=== PATIENT | female | born 1965 | race African-American/Black ===

== ENCOUNTER 2022-05-05 15:18 | Inpatient (IN) | payer OTHER ==
[2022-05-05] MEDS ORDERED: ACETAMINOPHEN 325 MG TABLET (FP) PO ONE (16:46)
[2022-05-05] MEDS ORDERED: METHOCARBAMOL 500 MG TABLET PO ONE (16:46)
[2022-05-05] MEDS ORDERED: oxyCODONE HCL 5 MG TABLET PO ONE (16:46)
[2022-05-05] MEDS ORDERED: oxyCODONE HCL 5 MG TABLET ONE (17:19)
[2022-05-05] MEDS ORDERED: ACETAMINOPHEN 325 MG TABLET (FP) ONE (17:19)
[2022-05-05] MEDS ORDERED: METHOCARBAMOL 500 MG TABLET ONE (17:19)
[2022-05-05 17:39] LABS: BASO % 0.5 % (0-2.0); EOS % 1.9 % (0-4.5); HEMATOCRIT 38.4 % (32.4-45.2); HEMOGLOBIN 13.1 GM/dL (10.7-15.3); LYMPH % 39.8 % (8-40); MEAN CELL VOLUME 88.2 fl (80-96); MEAN PLT VOLUME 9.4 fl (7.5-11.1); MONO % 8.9 % (3.8-10.2); NEUT % 48.9 % (42.8-82.8); PLATELET COUNT 238 10^3/uL (134-434); RBC 4.36 M/mm3 (3.60-5.2); RDW 13.6 % (11.6-15.6); WHITE BLOOD COUNT 4.6 K/mm3 (4.0-10.0)
[2022-05-05] MEDS ORDERED: hydrALAZINE HCL 50 MG TABLET (FP) PO ONE (17:43)
[2022-05-05] MEDS ORDERED: LABETALOL HCL 100 MG TABLET (FP) PO ONE (17:43)
[2022-05-05 17:52] LABS: ALBUMIN 3.7 g/dl (3.4-5.0); BLOOD UREA NITROGEN 14.9 mg/dL (7-18)
[2022-05-05 17:53] LABS: INR 1.04 (0.83-1.09)
[2022-05-05 17:56] LABS: ACTIVATED PTT 31.1 SECONDS (25.2-36.5); TOT PROT 7.6 g/dl (6.4-8.2)
[2022-05-05 17:57] LABS: BILIRUBIN,TOTAL 0.4 mg/dL (0.2-1)
[2022-05-05] MEDS ORDERED: LABETALOL HCL 100 MG TABLET (FP) ONE ×2 (18:00→23:33)
[2022-05-05] MEDS ORDERED: hydrALAZINE HCL 50 MG TABLET (FP) ONE (18:00)
[2022-05-05] MEDS ORDERED: hydrALAZINE HCL 20 MG/ML VIAL ONE (22:55)
[2022-05-05] MEDS ORDERED: ACETAMINOPHEN INJECTION 100 ML IVPB ONE (22:55)
[2022-05-05] MEDS: ACETAMINOPHEN 1000 MG/100 ML BAG IVPB PRN (23:01)
[2022-05-05] MEDS ORDERED: LABETALOL HCL 200 MG TABLET (FP) PO SCH (23:15)
[2022-05-05] MEDS: hydrALAZINE HCL 20 MG/ML VIAL IVPUSH PRN (23:31)
[2022-05-06] MEDS: LABETALOL HCL 200 MG TABLET (FP) PO SCH ×3 (06:03→21:49)
[2022-05-06] MEDS: hydrALAZINE HCL 50 MG TABLET (FP) PO SCH ×3 (08:19→21:49)
[2022-05-06 09:25] LABS: BASO % 0.5 % (0-2.0); EOS % 1.5 % (0-4.5); HEMATOCRIT 42.3 % (32.4-45.2); HEMOGLOBIN 13.9 GM/dL (10.7-15.3); LYMPH % 46.6 % (8-40); MCH 29.3 pg (25.7-33.7); MCHC 32.8 g/dl (32.0-36.0); MEAN CELL VOLUME 89.4 fl (80-96); MEAN PLT VOLUME 10.2 fl (7.5-11.1); MONO % 7.6 % (3.8-10.2); NEUT % 43.8 % (42.8-82.8); PLATELET COUNT 229 10^3/uL (134-434); RBC 4.73 M/mm3 (3.60-5.2); RDW 13.9 % (11.6-15.6); WHITE BLOOD COUNT 4.1 K/mm3 (4.0-10.0)
[2022-05-06 09:54] LABS: ALBUMIN 3.5 g/dl (3.4-5.0); BLOOD UREA NITROGEN 15.1 mg/dL (7-18); MAGNESIUM 2.3 mg/dL (1.8-2.4)
[2022-05-06 09:57] LABS: CREATININE 0.8 mg/dL (0.55-1.3); PHOSPHOROUS 3.7 mg/dL (2.5-4.9)
[2022-05-06 09:59] LABS: BILIRUBIN,TOTAL 0.6 mg/dL (0.2-1); TOT PROT 7.6 g/dl (6.4-8.2)
[2022-05-06] MEDS ORDERED: HYDROCHLOROTHIAZIDE 12.5 MG CAPSULE (FP) PO SCH (10:00)
[2022-05-06] MEDS ORDERED: amLODIPine BESYLATE 5 MG TABLET (FP) PO SCH (12:15)
[2022-05-06] MEDS ORDERED: oxyCODONE HCL 5 MG TABLET PO PRN ×2 (15:48→15:52)
[2022-05-06] MEDS: GABAPENTIN 300 MG CAPSULE PO SCH ×2 (16:32→21:49)
[2022-05-06] MEDS: SPIRONOLACTONE 25 MG TABLET PO SCH (16:32)
[2022-05-06] MEDS: ACETAMINOPHEN 1000 MG/100 ML BAG IVPB PRN (16:33)
[2022-05-06] MEDS: VALSARTAN 160 MG TABLET PO SCH ×2 (16:33→21:49)
[2022-05-06] MEDS: HEPARIN NA (PORCINE) 5,000 UNITS/ML 1ML VIAL SQ SCH (21:54)
[2022-05-07] MEDS: LABETALOL HCL 200 MG TABLET (FP) PO SCH ×4 (05:16→23:12)
[2022-05-07] MEDS: GABAPENTIN 300 MG CAPSULE PO SCH ×3 (05:16→23:11)
[2022-05-07 09:57] LABS: BASO % 1.4 % (0-2.0); EOS % 2.5 % (0-4.5); HEMATOCRIT 39.9 % (32.4-45.2); LYMPH % 47.2 % (8-40); MCH 29.6 pg (25.7-33.7); MCHC 32.7 g/dl (32.0-36.0); MEAN CELL VOLUME 90.4 fl (80-96); MEAN PLT VOLUME 10.5 fl (7.5-11.1); MONO % 7.1 % (3.8-10.2); NEUT % 41.8 % (42.8-82.8); PLATELET COUNT 186 10^3/uL (134-434); RBC 4.41 M/mm3 (3.60-5.2); RDW 14.4 % (11.6-15.6); WHITE BLOOD COUNT 4.2 K/mm3 (4.0-10.0)
[2022-05-07 10:11] LABS: CALCIUM 9.3 mg/dL (8.5-10.1)
[2022-05-07 10:12] LABS: ALBUMIN 3.6 g/dl (3.4-5.0); BLOOD UREA NITROGEN 14.9 mg/dL (7-18); MAGNESIUM 2.3 mg/dL (1.8-2.4)
[2022-05-07] MEDS: hydrALAZINE HCL 50 MG TABLET (FP) PO SCH ×2 (10:13→23:12)
[2022-05-07] MEDS: SPIRONOLACTONE 25 MG TABLET PO SCH (10:13)
[2022-05-07] MEDS: HEPARIN NA (PORCINE) 5,000 UNITS/ML 1ML VIAL SQ SCH ×2 (10:13→23:08)
[2022-05-07] MEDS: VALSARTAN 160 MG TABLET PO SCH ×2 (10:13→23:12)
[2022-05-07 10:16] LABS: BILIRUBIN,TOTAL 0.4 mg/dL (0.2-1); TOT PROT 7.8 g/dl (6.4-8.2)
[2022-05-07 10:28] LABS: PLATELET ESTIMATE ADEQUATE
[2022-05-07] MEDS ORDERED: clonazePAM 0.5 MG TABLET PO PRN (10:58)
[2022-05-07] MEDS: LIDOCAINE 5% TOPICAL PATCH TP SCH (12:34)
[2022-05-07] MEDS: hydrALAZINE HCL 20 MG/ML VIAL IVPUSH PRN (20:28)
[2022-05-07] MEDS ORDERED: LIDOCAINE PATCH REMOVAL MC SCH (22:00)
[2022-05-08] MEDS: GABAPENTIN 300 MG CAPSULE PO SCH ×3 (06:10→21:35)
[2022-05-08] MEDS: LABETALOL HCL 200 MG TABLET (FP) PO SCH ×3 (06:10→21:35)
[2022-05-08] MEDS: hydrALAZINE HCL 20 MG/ML VIAL IVPUSH PRN (06:10)
[2022-05-08] MEDS ORDERED: ceFAZolin SODIUM 1 GM VIAL ONE (06:36)
[2022-05-08] MEDS ORDERED: THROMBIN (BOVINE) 5,000 UNIT VIAL TP ONE (06:37)
[2022-05-08 07:51] LABS: CALCIUM 8.8 mg/dL (8.5-10.1)
[2022-05-08 07:52] LABS: ALBUMIN 3.4 g/dl (3.4-5.0); BLOOD UREA NITROGEN 15.9 mg/dL (7-18)
[2022-05-08 07:53] LABS: BASO % 0.9 % (0-2.0); EOS % 2.5 % (0-4.5); HEMATOCRIT 39.3 % (32.4-45.2); HEMOGLOBIN 12.9 GM/dL (10.7-15.3); MCH 29.5 pg (25.7-33.7); MCHC 32.8 g/dl (32.0-36.0); MEAN CELL VOLUME 89.9 fl (80-96); MEAN PLT VOLUME 10.7 fl (7.5-11.1); MONO % 10.2 % (3.8-10.2); NEUT % 36.4 % (42.8-82.8); PLATELET COUNT 220 10^3/uL (134-434); RBC 4.37 M/mm3 (3.60-5.2); RDW 14.2 % (11.6-15.6); WHITE BLOOD COUNT 4.5 K/mm3 (4.0-10.0)
[2022-05-08 07:55] LABS: CREATININE 0.9 mg/dL (0.55-1.3)
[2022-05-08 07:57] LABS: BILIRUBIN,TOTAL 0.3 mg/dL (0.2-1); TOT PROT 7.3 g/dl (6.4-8.2)
[2022-05-08] MEDS: oxyCODONE HCL 5 MG TABLET PO PRN ×2 (08:47→17:36)
[2022-05-08] MEDS: LIDOCAINE 5% TOPICAL PATCH TP SCH (09:09)
[2022-05-08] MEDS: VALSARTAN 160 MG TABLET PO SCH ×2 (09:09→21:35)
[2022-05-08] MEDS: SPIRONOLACTONE 25 MG TABLET PO SCH (09:09)
[2022-05-08] MEDS: hydrALAZINE HCL 50 MG TABLET (FP) PO SCH ×2 (09:09→21:34)
[2022-05-08] MEDS: HEPARIN NA (PORCINE) 5,000 UNITS/ML 1ML VIAL SQ SCH ×2 (09:10→21:35)
[2022-05-08] MEDS ORDERED: ACETAMINOPHEN/CAFFEINE/BUTALBITAL 1 TAB PO PRN ×2 (09:48→18:10)
[2022-05-08] MEDS ORDERED: ACETAMINOPHEN/CAFFEINE/BUTALBITAL 1 TAB PO ONE (10:37)
[2022-05-08 11:34] LABS: EPI CELLS 33 /uL (0-25.1); HYALINE CASTS 1 /uL (0-3.1); URINE APPEARANCE CLOUDY; URINE BACTERIA >9,000 /uL (0-1359); URINE BILIRUBIN NEGATIVE (NEGATIVE); URINE COLOR YELLOW; URINE GLUCOSE (UA) NEGATIVE (NEGATIVE); URINE KETONE NEGATIVE (NEGATIVE); URINE LEUK ESTERASE TRACE (NEGATIVE); URINE NITRITE POSITIVE (NEGATIVE); URINE PROTEIN NEGATIVE (NEGATIVE); URINE RBC 4 /uL (0-23.9); URINE UROBILINOGEN 0.2 mg/dL (0.2-1.0); URINE WBC 76 /uL (0-25.8)
[2022-05-08] MEDS ORDERED: CEFTRIAXONE 1 GM in DEXTROSE 5%-WATER - 50 ML IVPB SCH (11:45)
[2022-05-08 12:48] LABS: INR 0.99 (0.83-1.09); PROTHROMBIN TIME (PATIENT) 11.4 SEC (9.7-13.0)
[2022-05-08] MEDS ORDERED: SPIRONOLACTONE 25 MG TABLET PO SCH (13:24)
[2022-05-08] MEDS: SPIRONOLACTONE 25 MG TABLET PO ONE ×2 (13:24→13:57)
[2022-05-08] MEDS ORDERED: oxyCODONE HCL 5 MG TABLET PO PRN ×2 (18:10)
[2022-05-08] MEDS ORDERED: clonazePAM 0.5 MG TABLET PO PRN (18:10)
[2022-05-08] MEDS ORDERED: hydrALAZINE HCL 20 MG/ML VIAL IVPUSH PRN (18:10)
[2022-05-08] MEDS ORDERED: LIDOCAINE PATCH REMOVAL MC SCH (22:00)
[2022-05-09] MEDS: GABAPENTIN 300 MG CAPSULE PO SCH ×3 (05:32→21:26)
[2022-05-09] MEDS: LABETALOL HCL 200 MG TABLET (FP) PO SCH ×3 (05:33→21:26)
[2022-05-09 09:26] LABS: BASO % 0.8 % (0-2.0); EOS % 3.1 % (0-4.5); HEMATOCRIT 37.8 % (32.4-45.2); HEMOGLOBIN 12.2 GM/dL (10.7-15.3); LYMPH % 55.8 % (8-40); MCH 29.1 pg (25.7-33.7); MCHC 32.3 g/dl (32.0-36.0); MEAN CELL VOLUME 90.2 fl (80-96); MONO % 9.4 % (3.8-10.2); NEUT % 30.9 % (42.8-82.8); PLATELET COUNT 165 10^3/uL (134-434); RDW 14.3 % (11.6-15.6); WHITE BLOOD COUNT 3.9 K/mm3 (4.0-10.0)
[2022-05-09 09:29] LABS: INR 0.99 (0.83-1.09); PROTHROMBIN TIME (PATIENT) 11.4 SEC (9.7-13.0)
[2022-05-09] MEDS ORDERED: ceFAZolin SODIUM 1 GM VIAL ONE (09:30)
[2022-05-09] MEDS ORDERED: THROMBIN (BOVINE) 5,000 UNIT VIAL TP ONE (09:31)
[2022-05-09] MEDS ORDERED: BUPIVACAINE HCL 50 ML ONE (09:31)
[2022-05-09] MEDS ORDERED: SEVOFLURANE 250 ML BTL ONE (09:48)
[2022-05-09] MEDS ORDERED: DEXAMETHASONE SOD PHOSPHATE 4 MG/1 ML VIAL ONE (09:48)
[2022-05-09] MEDS ORDERED: ONDANSETRON 4 MG/2 ML VIAL ONE (09:48)
[2022-05-09] MEDS ORDERED: ROCURONIUM BROMIDE 50 MG/5 ML SYRINGE ONE (09:49)
[2022-05-09] MEDS ORDERED: PROPOFOL 40 ML ONE (09:49)
[2022-05-09] MEDS ORDERED: MIDAZOLAM HCL 2 MG/2 ML SINGLE DOSE VIAL ONE (09:49)
[2022-05-09] MEDS ORDERED: LIDOCAINE HCL 2% 100 MG/5 ML DISP.SYRIN ONE (09:51)
[2022-05-09] MEDS ORDERED: CEFTRIAXONE 1 GM in DEXTROSE 5%-WATER - 50 ML IVPB SCH (10:00)
[2022-05-09] MEDS ORDERED: LIDOCAINE 5% TOPICAL PATCH TP SCH (10:00)
[2022-05-09] MEDS ORDERED: SPIRONOLACTONE 25 MG TABLET PO SCH (10:00)
[2022-05-09] MEDS ORDERED: ONDANSETRON 4 MG/2 ML VIAL IVPUSH PRN ×2 (10:08→14:48)
[2022-05-09] MEDS ORDERED: ACETAMINOPHEN 325 MG TABLET (FP) PO PRN ×2 (10:08→14:48)
[2022-05-09 10:12] LABS: CALCIUM 8.8 mg/dL (8.5-10.1)
[2022-05-09 10:13] LABS: ALBUMIN 3.2 g/dl (3.4-5.0); BLOOD UREA NITROGEN 18.1 mg/dL (7-18); MAGNESIUM 2.2 mg/dL (1.8-2.4)
[2022-05-09] MEDS ORDERED: ACETAMINOPHEN INJECTION 100 ML IVPB ONE (10:14)
[2022-05-09] MEDS ORDERED: LACTATED RINGERS SOLUTION 1,000 ML IV SCH ×2 (10:15→14:48)
[2022-05-09 10:16] LABS: CREATININE 0.9 mg/dL (0.55-1.3)
[2022-05-09 10:17] LABS: TOT PROT 7.2 g/dl (6.4-8.2)
[2022-05-09 10:18] LABS: BILIRUBIN,TOTAL 0.3 mg/dL (0.2-1)
[2022-05-09] MEDS ORDERED: HYDROmorphone HCl 2 MG/ML VIAL ONE (10:49)
[2022-05-09] MEDS ORDERED: cefTRIAXone SODIUM 1 GM VIAL IVPB ONE (11:00)
[2022-05-09] MEDS ORDERED: SUGAMMADEX SODIUM 200 MG/2 ML VIAL ONE (11:18)
[2022-05-09] MEDS ORDERED: ceFAZolin SODIUM 1 GM VIAL IVPB ONE (11:29)
[2022-05-09] MEDS ORDERED: ACETAMINOPHEN/CAFFEINE/BUTALBITAL 1 TAB PO PRN (14:48)
[2022-05-09] MEDS ORDERED: clonazePAM 0.5 MG TABLET PO PRN (14:48)
[2022-05-09] MEDS ORDERED: hydrALAZINE HCL 20 MG/ML VIAL IVPUSH PRN (14:48)
[2022-05-09] MEDS ORDERED: oxyCODONE HCL 5 MG TABLET PO PRN (14:48)
[2022-05-09] MEDS: VALSARTAN 160 MG TABLET PO SCH ×2 (16:43→21:25)
[2022-05-09] MEDS: hydrALAZINE HCL 50 MG TABLET (FP) PO SCH ×2 (16:43→21:25)
[2022-05-09] MEDS: HEPARIN NA (PORCINE) 5,000 UNITS/ML 1ML VIAL SQ SCH ×2 (16:43→21:27)
[2022-05-09] MEDS ORDERED: CEFAZOLIN 1 GM in DEXTROSE 5%-WATER - 50 ML IVPB SCH ×2 (18:00→18:21)
[2022-05-09] MEDS: CEFAZOLIN 1 GM in DEXTROSE 5%-WATER - 50 ML IVPB SCH (18:37)
[2022-05-09] MEDS: oxyCODONE HCL 5 MG TABLET PO PRN (19:36)
[2022-05-09] MEDS: LIDOCAINE PATCH REMOVAL MC SCH (23:36)
[2022-05-10] MEDS: CEFAZOLIN 1 GM in DEXTROSE 5%-WATER - 50 ML IVPB SCH ×2 (02:10→11:01)
[2022-05-10] MEDS: oxyCODONE HCL 5 MG TABLET PO PRN ×2 (02:15→08:38)
[2022-05-10] MEDS: GABAPENTIN 300 MG CAPSULE PO SCH ×2 (05:37→16:10)
[2022-05-10] MEDS: LABETALOL HCL 200 MG TABLET (FP) PO SCH ×2 (05:37→13:45)
[2022-05-10] MEDS ORDERED: oxyCODONE HCL 5 MG TABLET PO ONE (10:40)
[2022-05-10] MEDS: LIDOCAINE 5% TOPICAL PATCH TP SCH (10:59)
[2022-05-10] MEDS: SPIRONOLACTONE 25 MG TABLET PO SCH (11:01)
[2022-05-10] MEDS: CEFTRIAXONE 1 GM in DEXTROSE 5%-WATER - 50 ML IVPB SCH (11:01)
[2022-05-10] MEDS: hydrALAZINE HCL 50 MG TABLET (FP) PO SCH (11:02)
[2022-05-10] MEDS: VALSARTAN 160 MG TABLET PO SCH (11:02)
[2022-05-10] MEDS: HEPARIN NA (PORCINE) 5,000 UNITS/ML 1ML VIAL SQ SCH ×2 (11:03→22:58)
[2022-05-10] MEDS ORDERED: ACETAMINOPHEN 1000 MG/100 ML BAG IVPB ONE (11:06)
[2022-05-10 11:56] LABS: BASO % 0.2 % (0-2.0); HEMATOCRIT 37.1 % (32.4-45.2); LYMPH % 18.7 % (8-40); MCH 29.3 pg (25.7-33.7); MCHC 32.3 g/dl (32.0-36.0); MEAN CELL VOLUME 90.7 fl (80-96); MEAN PLT VOLUME 10.5 fl (7.5-11.1); NEUT % 76.1 % (42.8-82.8); PLATELET COUNT 232 10^3/uL (134-434); RBC 4.09 M/mm3 (3.60-5.2); RDW 14.1 % (11.6-15.6); WHITE BLOOD COUNT 8.2 K/mm3 (4.0-10.0)
[2022-05-10 12:12] LABS: CALCIUM 8.5 mg/dL (8.5-10.1)
[2022-05-10 12:13] LABS: ALBUMIN 3.2 g/dl (3.4-5.0); BLOOD UREA NITROGEN 22.2 mg/dL (7-18); MAGNESIUM 2.2 mg/dL (1.8-2.4)
[2022-05-10 12:18] LABS: BILIRUBIN,TOTAL 0.2 mg/dL (0.2-1); TOT PROT 6.9 g/dl (6.4-8.2)
[2022-05-10] MEDS ORDERED: SENNOSIDES 8.6MG TABLET (FP) PO PRN (13:08)
[2022-05-10] MEDS ORDERED: oxyCODONE HCL 5 MG TABLET PO SCH (14:00)
[2022-05-10] MEDS: DOCUSATE SODIUM 100 MG CAPSULE (FP) PO SCH ×2 (16:11→22:58)
[2022-05-10] MEDS: ACETAMINOPHEN 500 MG TABLET (FP) PO SCH ×2 (16:11→22:56)
[2022-05-10] MEDS ORDERED: HYDROmorphone HCL CARPU-JECT 2 MG/1 ML DISP.SYRIN IVPUSH ONE (17:03)
[2022-05-10] MEDS ORDERED: HYDROmorphone HCl 2 MG/ML VIAL IVPB ONE (17:03)
[2022-05-10] MEDS ORDERED: HYDROmorphone HCL CARPU-JECT 2 MG/1 ML DISP.SYRIN IVPB PRN (17:05)
[2022-05-10] MEDS: HYDROmorphone HCl 2 MG/ML VIAL IVPB PRN (22:55)
[2022-05-10] MEDS: GABAPENTIN 400 MG CAPSULE PO SCH (22:57)
[2022-05-10] MEDS: POLYETHYLENE GLYCOL (HEALTHYLAX) 3350 17 GM PACKET PO SCH (22:58)
[2022-05-10] MEDS: LIDOCAINE PATCH REMOVAL MC SCH (23:35)
[2022-05-11] MEDS: hydrALAZINE HCL 50 MG TABLET (FP) PO SCH ×2 (02:42→09:56)
[2022-05-11] MEDS: LABETALOL HCL 200 MG TABLET (FP) PO SCH ×3 (02:42→15:15)
[2022-05-11] MEDS: VALSARTAN 160 MG TABLET PO SCH ×2 (02:42→09:56)
[2022-05-11] MEDS: DOCUSATE SODIUM 100 MG CAPSULE (FP) PO SCH ×3 (06:03→23:33)
[2022-05-11] MEDS: GABAPENTIN 400 MG CAPSULE PO SCH ×2 (06:03→15:15)
[2022-05-11] MEDS: ACETAMINOPHEN 500 MG TABLET (FP) PO SCH ×2 (06:03→15:14)
[2022-05-11] MEDS: POLYETHYLENE GLYCOL (HEALTHYLAX) 3350 17 GM PACKET PO SCH (09:56)
[2022-05-11] MEDS: SPIRONOLACTONE 25 MG TABLET PO SCH (09:56)
[2022-05-11] MEDS: LIDOCAINE 5% TOPICAL PATCH TP SCH (09:56)
[2022-05-11] MEDS: HYDROmorphone HCl 2 MG/ML VIAL IVPB PRN ×2 (09:57→15:13)
[2022-05-11] MEDS: CEFTRIAXONE 1 GM in DEXTROSE 5%-WATER - 50 ML IVPB SCH (09:58)
[2022-05-11] MEDS: HEPARIN NA (PORCINE) 5,000 UNITS/ML 1ML VIAL SQ SCH ×2 (09:58→23:34)
[2022-05-11 13:15] LABS: BASO % 0.9 % (0-2.0); EOS % 0.5 % (0-4.5); HEMATOCRIT 35.6 % (32.4-45.2); HEMOGLOBIN 11.6 GM/dL (10.7-15.3); LYMPH % 26.1 % (8-40); MCH 29.6 pg (25.7-33.7); MCHC 32.7 g/dl (32.0-36.0); MEAN CELL VOLUME 90.5 fl (80-96); MEAN PLT VOLUME 10.2 fl (7.5-11.1); MONO % 9.8 % (3.8-10.2); NEUT % 62.7 % (42.8-82.8); PLATELET COUNT 212 10^3/uL (134-434); RBC 3.93 M/mm3 (3.60-5.2); RDW 14.2 % (11.6-15.6); WHITE BLOOD COUNT 9.3 K/mm3 (4.0-10.0)
[2022-05-11 13:31] LABS: CALCIUM 8.7 mg/dL (8.5-10.1)
[2022-05-11 13:32] LABS: ALBUMIN 3.2 g/dl (3.4-5.0); BLOOD UREA NITROGEN 22.4 mg/dL (7-18); MAGNESIUM 2.3 mg/dL (1.8-2.4)
[2022-05-11 13:35] LABS: CREATININE 0.9 mg/dL (0.55-1.3)
[2022-05-11 13:36] LABS: TOT PROT 6.8 g/dl (6.4-8.2)
[2022-05-11 13:37] LABS: BILIRUBIN,TOTAL 0.3 mg/dL (0.2-1)
[2022-05-11] MEDS ORDERED: HYDROmorphone HCl 2 MG/ML VIAL IVPB PRN ×2 (17:11→17:14)
[2022-05-11] MEDS ORDERED: HYDROmorphone HCL CARPU-JECT 2 MG/1 ML DISP.SYRIN IVPB PRN (17:11)
[2022-05-11] MEDS ORDERED: HYDROmorphone HCL 2 MG TABLET PO PRN (17:15)
[2022-05-11] MEDS ORDERED: SODIUM CHLORIDE 1,000 ML IV SCH (17:30)
[2022-05-11] MEDS: oxyCODONE HCL 5 MG TABLET PO PRN (18:10)
[2022-05-11 20:11] VITALS: BMI 30.2
[2022-05-11] MEDS: LIDOCAINE PATCH REMOVAL MC SCH (23:28)
[2022-05-12] MEDS: VALSARTAN 160 MG TABLET PO SCH ×3 (00:31→21:02)
[2022-05-12] MEDS: ACETAMINOPHEN 500 MG TABLET (FP) PO SCH ×3 (00:31→13:45)
[2022-05-12] MEDS: LABETALOL HCL 200 MG TABLET (FP) PO SCH ×3 (00:40→13:46)
[2022-05-12] MEDS: hydrALAZINE HCL 50 MG TABLET (FP) PO SCH ×3 (00:41→21:02)
[2022-05-12] MEDS: POLYETHYLENE GLYCOL (HEALTHYLAX) 3350 17 GM PACKET PO SCH ×3 (00:41→21:02)
[2022-05-12] MEDS: DOCUSATE SODIUM 100 MG CAPSULE (FP) PO SCH ×3 (06:16→21:02)
[2022-05-12 08:48] LABS: BASO % 0.6 % (0-2.0); EOS % 0.9 % (0-4.5); HEMOGLOBIN 12.2 GM/dL (10.7-15.3); LYMPH % 17.7 % (8-40); MCHC 33.1 g/dl (32.0-36.0); MEAN CELL VOLUME 90.7 fl (80-96); MEAN PLT VOLUME 9.6 fl (7.5-11.1); MONO % 8.1 % (3.8-10.2); NEUT % 72.7 % (42.8-82.8); PLATELET COUNT 202 10^3/uL (134-434); RBC 4.08 M/mm3 (3.60-5.2); RDW 14.2 % (11.6-15.6); WHITE BLOOD COUNT 9.2 K/mm3 (4.0-10.0)
[2022-05-12 09:10] LABS: BLOOD UREA NITROGEN 14.8 mg/dL (7-18)
[2022-05-12 09:11] LABS: ALBUMIN 3.2 g/dl (3.4-5.0); CALCIUM 8.9 mg/dL (8.5-10.1); MAGNESIUM 2.4 mg/dL (1.8-2.4)
[2022-05-12 09:14] LABS: CREATININE 0.8 mg/dL (0.55-1.3)
[2022-05-12 09:15] LABS: BILIRUBIN,TOTAL 0.5 mg/dL (0.2-1); TOT PROT 7.1 g/dl (6.4-8.2)
[2022-05-12] MEDS: CEFTRIAXONE 1 GM in DEXTROSE 5%-WATER - 50 ML IVPB SCH (09:31)
[2022-05-12] MEDS: SPIRONOLACTONE 25 MG TABLET PO SCH (09:32)
[2022-05-12] MEDS: LIDOCAINE 5% TOPICAL PATCH TP SCH (09:33)
[2022-05-12] MEDS: HEPARIN NA (PORCINE) 5,000 UNITS/ML 1ML VIAL SQ SCH ×2 (09:33→21:03)
[2022-05-12] MEDS ORDERED: ACETAMINOPHEN 500 MG TABLET (FP) PO PRN (14:41)
[2022-05-12] MEDS ORDERED: LABETALOL HCL 100 MG TABLET (FP) PO ONE (14:45)
[2022-05-12] MEDS: ACETAMINOPHEN 500 MG TABLET (FP) PO PRN (15:01)
[2022-05-12] MEDS: NITROFURANTOIN MACROCRYSTAL 50 MG CAPSULE (FP) PO SCH (17:57)
[2022-05-12] MEDS: LABETALOL HCL 100 MG TABLET (FP) PO SCH (21:03)
[2022-05-12] MEDS: LIDOCAINE PATCH REMOVAL MC SCH (22:34)
[2022-05-13] MEDS: NITROFURANTOIN MACROCRYSTAL 50 MG CAPSULE (FP) PO SCH ×4 (01:36→18:21)
[2022-05-13] MEDS: DOCUSATE SODIUM 100 MG CAPSULE (FP) PO SCH ×4 (05:27→21:56)
[2022-05-13] MEDS: LABETALOL HCL 100 MG TABLET (FP) PO SCH ×3 (05:27→21:35)
[2022-05-13] MEDS ORDERED: METOCLOPRAMIDE HCL INJECTION 10 MG/2 ML VIAL IM ONE (06:33)
[2022-05-13] MEDS: SPIRONOLACTONE 25 MG TABLET PO SCH (09:35)
[2022-05-13] MEDS: VALSARTAN 160 MG TABLET PO SCH ×2 (09:35→21:35)
[2022-05-13] MEDS: hydrALAZINE HCL 50 MG TABLET (FP) PO SCH ×2 (09:35→21:34)
[2022-05-13] MEDS: POLYETHYLENE GLYCOL (HEALTHYLAX) 3350 17 GM PACKET PO SCH ×2 (09:36→21:56)
[2022-05-13] MEDS: LIDOCAINE 5% TOPICAL PATCH TP SCH (09:37)
[2022-05-13] MEDS: HEPARIN NA (PORCINE) 5,000 UNITS/ML 1ML VIAL SQ SCH ×2 (09:37→21:56)
[2022-05-13] MEDS ORDERED: SODIUM CHLORIDE 500 ML IV STA (12:00)
[2022-05-13] MEDS ORDERED: ACETAMINOPHEN/CAFFEINE/BUTALBITAL 1 TAB PO PRN (12:01)
[2022-05-13] MEDS ORDERED: ACETAMINOPHEN/CAFFEINE/BUTALBITAL 1 TAB PO ONE (12:46)
[2022-05-13] MEDS: SODIUM CHLORIDE 1,000 ML IV SCH (14:09)
[2022-05-13] MEDS: GABAPENTIN 400 MG CAPSULE PO SCH (21:35)
[2022-05-13] MEDS: ACETAMINOPHEN 500 MG TABLET (FP) PO PRN (21:37)
[2022-05-14] MEDS: NITROFURANTOIN MACROCRYSTAL 50 MG CAPSULE (FP) PO SCH ×4 (00:36→18:35)
[2022-05-14] MEDS: LABETALOL HCL 100 MG TABLET (FP) PO SCH ×3 (05:36→23:18)
[2022-05-14] MEDS: DOCUSATE SODIUM 100 MG CAPSULE (FP) PO SCH ×3 (05:37→22:49)
[2022-05-14] MEDS: ACETAMINOPHEN 500 MG TABLET (FP) PO PRN (05:37)
[2022-05-14] MEDS: GABAPENTIN 400 MG CAPSULE PO SCH ×3 (05:37→22:49)
[2022-05-14] MEDS: LIDOCAINE PATCH REMOVAL MC SCH ×2 (05:38→22:50)
[2022-05-14] MEDS: POLYETHYLENE GLYCOL (HEALTHYLAX) 3350 17 GM PACKET PO SCH ×2 (09:14→22:50)
[2022-05-14] MEDS: SPIRONOLACTONE 25 MG TABLET PO SCH (09:15)
[2022-05-14] MEDS: hydrALAZINE HCL 50 MG TABLET (FP) PO SCH ×2 (09:15→23:18)
[2022-05-14] MEDS: VALSARTAN 160 MG TABLET PO SCH ×2 (09:15→23:18)
[2022-05-14] MEDS: LIDOCAINE 5% TOPICAL PATCH TP SCH (09:17)
[2022-05-14] MEDS: HEPARIN NA (PORCINE) 5,000 UNITS/ML 1ML VIAL SQ SCH ×2 (09:17→22:50)
[2022-05-14 09:41] LABS: BASO % 0.7 % (0-2.0); EOS % 2.7 % (0-4.5); HEMATOCRIT 34.6 % (32.4-45.2); HEMOGLOBIN 11.6 GM/dL (10.7-15.3); LYMPH % 23.3 % (8-40); MCH 30.3 pg (25.7-33.7); MCHC 33.6 g/dl (32.0-36.0); MEAN CELL VOLUME 90.2 fl (80-96); MEAN PLT VOLUME 9.3 fl (7.5-11.1); MONO % 12.2 % (3.8-10.2); NEUT % 61.1 % (42.8-82.8); PLATELET COUNT 249 10^3/uL (134-434); RBC 3.83 M/mm3 (3.60-5.2); RDW 13.8 % (11.6-15.6); WHITE BLOOD COUNT 6.7 K/mm3 (4.0-10.0)
[2022-05-14 10:12] LABS: BLOOD UREA NITROGEN 19.3 mg/dL (7-18); CALCIUM 8.9 mg/dL (8.5-10.1); MAGNESIUM 2.5 mg/dL (1.8-2.4)
[2022-05-14 10:15] LABS: CREATININE 0.8 mg/dL (0.55-1.3)
[2022-05-14 10:17] LABS: BILIRUBIN,TOTAL 0.4 mg/dL (0.2-1); TOT PROT 6.8 g/dl (6.4-8.2)
[2022-05-14] MEDS: SODIUM CHLORIDE 1,000 ML IV SCH (14:12)
[2022-05-15] MEDS: NITROFURANTOIN MACROCRYSTAL 50 MG CAPSULE (FP) PO SCH ×4 (01:02→18:08)
[2022-05-15] MEDS: GABAPENTIN 400 MG CAPSULE PO SCH ×3 (06:06→22:09)
[2022-05-15] MEDS: DOCUSATE SODIUM 100 MG CAPSULE (FP) PO SCH ×3 (06:06→22:09)
[2022-05-15] MEDS: LABETALOL HCL 100 MG TABLET (FP) PO SCH (06:07)
[2022-05-15] MEDS: HEPARIN NA (PORCINE) 5,000 UNITS/ML 1ML VIAL SQ SCH ×2 (11:05→22:08)
[2022-05-15] MEDS: POLYETHYLENE GLYCOL (HEALTHYLAX) 3350 17 GM PACKET PO SCH ×2 (11:05→22:10)
[2022-05-15] MEDS: VALSARTAN 160 MG TABLET PO SCH ×2 (11:05→22:09)
[2022-05-15] MEDS: LIDOCAINE 5% TOPICAL PATCH TP SCH (11:05)
[2022-05-15] MEDS: SPIRONOLACTONE 25 MG TABLET PO SCH (11:05)
[2022-05-15] MEDS: hydrALAZINE HCL 50 MG TABLET (FP) PO SCH ×2 (11:05→22:08)
[2022-05-15 12:57] LABS: BASO % 0.8 % (0-2.0); EOS % 2.7 % (0-4.5); HEMATOCRIT 34.1 % (32.4-45.2); HEMOGLOBIN 11.7 GM/dL (10.7-15.3); LYMPH % 25.1 % (8-40); MCH 30.6 pg (25.7-33.7); MCHC 34.3 g/dl (32.0-36.0); MEAN CELL VOLUME 89.1 fl (80-96); MEAN PLT VOLUME 8.9 fl (7.5-11.1); MONO % 15.6 % (3.8-10.2); NEUT % 55.8 % (42.8-82.8); PLATELET COUNT 280 10^3/uL (134-434); RBC 3.83 M/mm3 (3.60-5.2); RDW 13.7 % (11.6-15.6); WHITE BLOOD COUNT 5.9 K/mm3 (4.0-10.0)
[2022-05-15 13:16] LABS: CALCIUM 9.3 mg/dL (8.5-10.1)
[2022-05-15 13:17] LABS: ALBUMIN 3.1 g/dl (3.4-5.0); BLOOD UREA NITROGEN 20.5 mg/dL (7-18); MAGNESIUM 2.4 mg/dL (1.8-2.4)
[2022-05-15 13:20] LABS: CREATININE 0.8 mg/dL (0.55-1.3)
[2022-05-15 13:21] LABS: BILIRUBIN,TOTAL 0.6 mg/dL (0.2-1); TOT PROT 7.4 g/dl (6.4-8.2)
[2022-05-15] MEDS ORDERED: KETOROLAC TROMETHAMINE 30 MG/1 ML VIAL IVPUSH ONE (13:52)
[2022-05-15] MEDS: LABETALOL HCL 200 MG, LABETALOL HCL 100 MG PO SCH ×2 (18:08→22:09)
[2022-05-15] MEDS: oxyCODONE HCL 5 MG TABLET PO PRN (19:52)
[2022-05-15] MEDS: LIDOCAINE PATCH REMOVAL MC SCH (22:09)
[2022-05-16] MEDS: NITROFURANTOIN MACROCRYSTAL 50 MG CAPSULE (FP) PO SCH ×3 (00:14→12:38)
[2022-05-16] MEDS: oxyCODONE HCL 5 MG TABLET PO PRN ×2 (01:50→09:28)
[2022-05-16] MEDS: LABETALOL HCL 200 MG, LABETALOL HCL 100 MG PO SCH ×2 (05:46→14:20)
[2022-05-16] MEDS: GABAPENTIN 400 MG CAPSULE PO SCH ×2 (05:46→14:20)
[2022-05-16] MEDS: DOCUSATE SODIUM 100 MG CAPSULE (FP) PO SCH ×2 (05:46→14:20)
[2022-05-16 07:17] VITALS: RESP 18
[2022-05-16] MEDS: VALSARTAN 160 MG TABLET PO SCH (09:16)
[2022-05-16] MEDS: SPIRONOLACTONE 25 MG TABLET PO SCH (09:16)
[2022-05-16] MEDS: HEPARIN NA (PORCINE) 5,000 UNITS/ML 1ML VIAL SQ SCH (09:16)
[2022-05-16] MEDS: LIDOCAINE 5% TOPICAL PATCH TP SCH (09:16)
[2022-05-16] MEDS: hydrALAZINE HCL 50 MG TABLET (FP) PO SCH (09:16)
[2022-05-16] MEDS: POLYETHYLENE GLYCOL (HEALTHYLAX) 3350 17 GM PACKET PO SCH (09:16)
[2022-05-16 11:56] LABS: BASO % 1.1 % (0-2.0); HEMATOCRIT 37.1 % (32.4-45.2); HEMOGLOBIN 12.3 GM/dL (10.7-15.3); LYMPH % 28.1 % (8-40); MCH 29.9 pg (25.7-33.7); MEAN CELL VOLUME 90.7 fl (80-96); MEAN PLT VOLUME 10.2 fl (7.5-11.1); NEUT % 57.8 % (42.8-82.8); PLATELET COUNT 292 10^3/uL (134-434); RDW 13.7 % (11.6-15.6); WHITE BLOOD COUNT 5.4 K/mm3 (4.0-10.0)
[2022-05-16 12:12] LABS: CALCIUM 9.1 mg/dL (8.5-10.1)
[2022-05-16 12:13] LABS: ALBUMIN 3.2 g/dl (3.4-5.0); MAGNESIUM 2.3 mg/dL (1.8-2.4)
[2022-05-16 12:16] LABS: CREATININE 0.8 mg/dL (0.55-1.3)
[2022-05-16 12:18] LABS: BILIRUBIN,TOTAL 0.4 mg/dL (0.2-1); TOT PROT 8.1 g/dl (6.4-8.2)
[2022-05-16 14:25] VITALS: BP 156/90; PULSE 60; TEMP 99
== END 2022-05-16 17:57 | disposition home or self-care (01) | DRG 310 ==
LOC: JER 15:18 → JERBED 18:08 → J7W 05-06 01:39 → J4W 05-06 18:16 → J5S 05-08 16:58
PROVIDERS: ADMIT Internal Medicine; ATTEND Nurse Practitioner Acute Care
PROC: 0ST40ZZ Resection of Lumbosacral Disc, Open Approach (ICD-10-PCS; principal; 2022-05-09 10:00)
DX: M51.17 Intervertebral disc disorders with radiculopathy, lumbosacral region (principal); M51.37 Other intervertebral disc degeneration, lumbosacral region; I10 Essential (primary) hypertension; M51.16 Intervertebral disc disorders with radiculopathy, lumbar region; G43.909 Migraine, unspecified, not intractable, without status migrainosus; F41.0 Panic disorder [episodic paroxysmal anxiety]; I16.1 Hypertensive emergency; E78.5 Hyperlipidemia, unspecified; R26.81 Unsteadiness on feet; R73.03 Prediabetes; E66.9 Obesity, unspecified; Z68.30 Body mass index [BMI] 30.0-30.9, adult; N39.0 Urinary tract infection, site not specified; B96.20 Unspecified Escherichia coli [E. coli] as the cause of diseases classified elsewhere; R11.0 Nausea; Z91.14 Patient's other noncompliance with medication regimen
CPT/HCPCS: 36415; 71045-TC-FY; 72110-TC-FY; 72148-TC; 80053; 80061; 81003; 83036; 83735; 84100; 84443; 84484; 85025; 85610; 85730; 86850; 86900; 86901; 87086; 87186; 93005; 93010; 93306-TC; 94010; 94760; 97116-GP; 97162-GP; 99285-25; C9803-CS; J1644; U0003; U0005

== ENCOUNTER 2022-05-19 12:45 | Emergency (ER) | payer OTHER ==
[2022-05-19 12:50] VITALS: BP 162/99; PULSE 59; RESP 17; TEMP 98; BMI 29.8
== END 2022-05-19 19:50 | disposition home or self-care (01) ==
LOC: JER 12:45
DX: M54.50 Low back pain, unspecified (principal); R33.9 Retention of urine, unspecified
CPT/HCPCS: 70450-TC; 72131-TC; 72148-TC; 93971; 99285-25

== ENCOUNTER 2024-12-29 11:20 | Emergency (ER) | payer OTHER ==
[2024-12-29 11:33] VITALS: RESP 18; TEMP 98.5; BMI 31.8
[2024-12-29] MEDS ORDERED: amLODIPine BESYLATE 10 MG TABLET (FP) ONE (12:08)
[2024-12-29] MEDS ORDERED: LOSARTAN POTASSIUM 50 MG TABLET ONE (12:08)
[2024-12-29] MEDS: LOSARTAN POTASSIUM 50 MG TABLET PO ONE (12:42)
[2024-12-29] MEDS: amLODIPine BESYLATE 10 MG TABLET (FP) PO ONE (12:42)
[2024-12-29] MEDS ORDERED: hydrALAZINE HCL 50 MG TABLET (FP) ONE (12:48)
[2024-12-29] MEDS ORDERED: PANTOPRAZOLE SODIUM 40 MG VIAL ONE (12:50)
[2024-12-29 12:59] LABS: ABSOLUTE IMMATURE GRANULOCYTES 0.02 x10^3/uL (0.0-0.031); BASOPHILS # 0.05 x10^3/uL (0.01-0.08); EOSINOPHIL % 1.1 % (0.7-5.8); EOSINOPHILS # 0.07 x10^3/uL (0.04-0.36); HEMATOCRIT 41.2 % (34.1-44.9); HEMOGLOBIN 13.5 g/dL (11.2-15.7); MCHC 32.8 g/dl (32.2-35.5); MEAN CELL VOLUME 87.7 fl (79.4-94.8); MEAN PLT VOLUME 10.8 fl (9.4-12.3); MONOCYTE # 0.65 x10^3/uL (0.24-0.86); PLATELET COUNT 276 x10^3/uL (182-369); RDW 14.3 % (12.3-16.6)
[2024-12-29 13:24] LABS: POTASSIUM 3.6 mmol/L (3.5-5.1)
[2024-12-29 13:28] LABS: ALBUMIN 3.6 g/dl (3.4-5.0); CALCIUM 9.6 mg/dL (8.5-10.1)
[2024-12-29 13:29] LABS: BLOOD UREA NITROGEN 9.6 mg/dL (7-18)
[2024-12-29 13:32] LABS: CREATININE 0.8 mg/dL (0.55-1.3)
[2024-12-29 13:33] LABS: BILIRUBIN,TOTAL 0.4 mg/dL (0.2-1); TOT PROT 8.4 g/dl (6.4-8.2)
[2024-12-29 13:37] LABS: N-TERMINAL BNP 555.8 pg/ml (5-125)
[2024-12-29 14:17] LABS: HIV INTERPRETATION NEGATIVE (NEGATIVE)
[2024-12-29 14:18] LABS: HCV DIAGNOSTIC IN-HOUSE W/RFLX NON-REACTIVE (NONREACTIVE)
[2024-12-29] MEDS: hydrALAZINE HCL 50 MG TABLET (FP) PO ONE (14:53)
[2024-12-29] MEDS: PANTOPRAZOLE SODIUM 40 MG VIAL IVPUSH ONE (14:53)
[2024-12-29] MEDS: LABETALOL HCL 20 MG/4 ML VIAL IVPUSH ONE (14:53)
[2024-12-29] MEDS ORDERED: LABETALOL HCL 20 MG/4 ML VIAL ONE (14:55)
[2024-12-29 15:01] VITALS: BP 197/97; PULSE 68
== END 2024-12-29 16:29 | disposition left against medical advice (07) ==
LOC: JER 11:20
PROC: 3E033GC Introduction of Other Therapeutic Substance into Peripheral Vein, Percutaneous Approach (ICD-10-PCS; principal; 2024-12-29)
DX: I10 Essential (primary) hypertension (principal); R05.9 Cough, unspecified; K92.0 Hematemesis; R51.9 Headache, unspecified; R00.2 Palpitations; F41.9 Anxiety disorder, unspecified
CPT/HCPCS: 36415; 70450-TC; 71045-TC-FY; 80053; 83880; 84484; 85025; 86803; 87389; 96374; 99285-25